=== PATIENT | male | born 1965 | race Caucasian/White ===

== ENCOUNTER 2016-07-18 20:45 | Emergency (ER) | payer SELFPAY ==
[~2016-07-18] VITALS: Wt 97.5 kg
== END 2016-07-18 22:11 | disposition left against medical advice (07) ==
LOC: E/R 20:45
DX: Z53.21 Procedure and treatment not carried out due to patient leaving prior to being seen by health care provider (principal)

== ENCOUNTER 2018-10-29 23:36 | Emergency (ER) | payer BC ==
[~2018-10-29] VITALS: Ht 177.8 cm; Wt 96.0 kg
[2018-10-29 23:44] VITALS: Ht 177.8 cm; Wt 96.0 kg
[2018-10-29] MEDS ORDERED: ASPIRIN 81 MG TAB PO STA (23:48)
--- NOTE | 2018-10-30 01:19 | ERD ---
ER Documentation Chief Complaint Chief Complaint STERNAL CHEST PAIN, 10/10, "SHARP" X 8:15PM TODAY. HPI 52-year-old male with a history of hypertension and hyperlipidemia presenting with left parasternal sharp chest pain that started last night. The pain improved a little bit and he went to sleep. The pain then woke him up from his sleep and was much more severe. He became concerned and came to the ER. He denies any significant shortness of breath. He was slightly sweating when he woke up. No associated dizziness. No recent illnesses. He does state that he has been worked up within the past few months for lymph nodes in his neck. He has a CT scan of his neck and chest which was normal but was done without IV contrast. He denies any history of cancer, immobilization, or blood clots. Currently his pain is still sharp, with no alleviating or exacerbating factors, 4 out of 10. Pain is nonradiating. ROS All systems reviewed and are negative except as per history of present illness. Medications Home Meds Reported Medications Aspirin* (Aspirin* EC) 81 Mg Tablet.dr, 81 MG PO DAILY, TAB 10/30/18 Losartan Potassium* (Losartan Potassium*) 50 Mg Tablet, 50 MG PO DAILY, TAB 10/30/18 Levothyroxine Sodium* (Levothyroxine Sodium*) 100 Mcg Tablet, 100 MCG PO BEFORE BREAKFAST, #30 TAB 10/30/18 Ezetimibe* (Zetia*) 10 Mg Tablet, 10 MG PO QAM, TAB 10/30/18 Allergies Allergies: Coded Allergies: No Known Allergy (Unverified , 10/29/18) PMhx/Soc History of Surgery: Yes (appendectomy, knee surgery) Hx Cardiac Disorders: Yes (htn) Hx Psychiatric Problems: No Hx Miscellaneous Medical Probl: No Hx Alcohol Use: No Hx Substance Use: No Hx Tobacco Use: No Smoking Status: Never smoker FmHx Father has prostate cancer Family History: No diabetes Physical Exam Vitals Vital Signs Date Temp Pulse Resp B/P (MAP) Pulse Ox O2 O2 Flow FiO2 Time Delivery Rate 10/30/18 76 16 122/87 97 Room Air 04:35 (99) 10/30/18 75 16 120/84 98 Room Air 01:26 (96) 10/30/18 86 16 130/83 100 Room Air 00:10 (99) 10/29/18 98.3 86 16 137/84 98 23:44 (101) Physical Exam Const: No acute distress Head: Atraumatic Eyes: Normal Conjunctiva ENT: Normal External Ears, Nose and Mouth. Neck: Full range of motion. No meningismus. No lymphadenopathy. No JVD Resp: Clear to auscultation bilaterally Cardio: Regular rate and rhythm, no murmurs. 2+ distal pulses in all 4 extremities Abd: Soft, non tender, non distended. Normal bowel sounds Skin: No petechiae or rashes Back: No midline or flank tenderness Ext: No cyanosis, or edema. No calf tenderness Neur: Awake and alert Psych: Normal Mood and Affect Result Diagram: 10/30/18610/30/186 Results 24 hrs Laboratory Tests Test 10/30/18 00:07 10/30/18 00:10 White Blood Count 4.4 10^3/ul Red Blood Count 4.67 10^6/ul Hemoglobin 14.9 g/dl Hematocrit 42.9 % Mean Corpuscular Volume 91.9 fl Mean Corpuscular Hemoglobin 31.9 pg Mean Corpuscular Hemoglobin Concent 34.7 g/dl Red Cell Distribution Width 12.0 % Platelet Count 230 10^3/UL Mean Platelet Volume 9.4 fl Immature Granulocytes % 0.200 % Neutrophils % 55.4 % Lymphocytes % 27.1 % Monocytes % 16.1 % Eosinophils % 0.7 % Basophils % 0.5 % Nucleated Red Blood Cells % 0.0 /100WBC Immature Granulocytes # 0.010 10^3/ul Neutrophils # 2.4 10^3/ul Lymphocytes # 1.2 10^3/ul Monocytes # 0.7 10^3/ul Eosinophils # 0.0 10^3/ul Basophils # 0.0 10^3/ul Nucleated Red Blood Cells # 0.0 10^3/ul Sodium Level 138 mmol/L Potassium Level 3.8 mmol/L Chloride Level 101 mmol/L Carbon Dioxide Level 27 mmol/L Anion Gap 10 Blood Urea Nitrogen 20 mg/dl Creatinine 1.01 mg/dl Est Glomerular Filtrat Rate mL/min > 60 mL/min Glucose Level 93 mg/dl Calcium Level 9.0 mg/dl Troponin I < 0.012 ng/ml D-Dimer 697.99 ng/ml Current Medications Medications Dose Sig/Shantal Start Time Status Last (Trade) Ordered Route PRN Stop Time Admin Dose Reason Admin Aspirin 162 mg ONCE STAT 10/29/18 DC 10/30/18 (Aspirin) PO 23:48 00:21 10/29/18 23:49 Procedures/MDM EMERGENT LABS AND DIAGNOSTIC STUDIES: Lab Results above were reviewed and interpreted by me. CBC: no anemia or evidence of infection BMP: No evidence of clinically significant electrolyte abnormality, acidosis, renal failure, hypoglycemia D-dimer elevated, increasing possibility of venous thrombosis Troponin within normal limits, not indicative of cardiac ischemia 12-lead EKG was interpreted by Melina Aburto MD: Normal Sinus Rhythm Normal axis Normal intervals No acute ST or T wave changes suggestive of acute ischemia or STEMI. Radiology Results as interpreted by Radiology below were reviewed by Lawrence Aburto MD: Chest x-ray shows no acute abnormalities VQ scan pending Initial Nursing notes reviewed. Previous Medical Records requested via the Electronic Health Record. EMERGENCY DEPARTMENT COURSE / MEDICAL DECISION MAKING: Patient is presenting with a left-sided sharp chest pain. Vitals were unremarkable upon arrival. EKG did not show evidence of ischemia. Chest x-ray was unremarkable. Troponin was within normal limits. Pain is very atypical for ACS and I have a low suspicion for this. I also have a low suspicion for aortic dissection. Given the patient cannot be ruled out with PERC criteria for PE and is low risk by Wells criteria, d-dimer was done and was elevated. For this reason CTPA was recommended. However the patient does have an allergy to iodinated contrast so VQ scan was recommended instead. If this scan is negative, I feel the patient can be safely discharged. At time of signout, patient is still awaiting the scan. Patient will be signed out to the oncoming ED physician. If the scan is negative, patient may be safely discharged home with instructions to follow-up with PCP within the next 2 days. Departure Diagnosis: Primary Impression: Chest pain Chest pain type: unspecified Qualified Codes: R07.9 - Chest pain, unspecified Condition: Stable EKTHEO SMITH MD Oct 30, 2018 01:19
[2018-10-30] MEDS ORDERED: LEVO100T8 PO (02:04)
[2018-10-30] MEDS ORDERED: LOSA50TA14 PO (02:04)
[2018-10-30] MEDS ORDERED: ASPI-817 PO (02:04)
[2018-10-30] MEDS ORDERED: EZET10TA31 PO (02:04)
[2018-10-30 13:34] VITALS: BP 131/82; PULSE 72; RESP 14
== END 2018-10-30 13:40 | disposition home or self-care (01) ==
LOC: E/R 23:36
DX: R07.2 Precordial pain (principal); I10 Essential (primary) hypertension; Z79.82 Long term (current) use of aspirin
CPT/HCPCS: 36415; 71045; 78582; 80048; 82550; 82553; 84484; 85025; 85378; 93005; 99285; A9540